=== PATIENT | female | born 1955 | race Caucasian/White ===

== ENCOUNTER 2017-02-26 09:02 | Inpatient (IN) | payer BC ==
[~2017-02-26] VITALS: Ht 154.9 cm; Wt 109.0 kg
[2017-02-26] VITALS (30 sets, daily range): BP systolic 72–112; BP diastolic 35–63
[~2017-02-26 09:02] MED LIST: ALPR1TAB7 PO; BENA20TA2 PO; BISO5TAB4 PO; CALC-1197 PO; CHOL100046 PO; DOCU-28 PO; DOCUMENT DATE & TIME OF BETA-BLOCKER PO ONE; EMPA25TA PO; FERR325T32 PO; HYDR-3972 PO; LACT460C; TEMA30CA5 PO; acetaminophen 325mg tablet PO ONE; bacitracin inj 150,000 UNIT in sodium chloride irrig. sol 3,000 ML IR ONE; ceFAZolin 2gm in dextrose, iso 100 ML IV ONE; famotidine 20mg tablet PO ONE; gabapentin 300mg capsule PO ONE; oxyCODONE SR 10mg (sust. release) tab PO ONE; ringers solution, lacted 1,000 ML IV SCH; tranexamic acid inj. 1,000 MG in normal saline 100ml IV soln 90 ML IV ONE; vancomycin inj 1,500 MG in normal saline 300ml IV soln IV ONE
[2017-02-26] MEDS ORDERED: albuterol 2.5 MG/3 ML nebule NEB ONE (10:10)
[2017-02-26] MEDS ORDERED: albuterol 2.5 MG/3 ML nebule ONE (10:11)
[2017-02-26] MEDS ORDERED: MORPHINE SULFATE/PF 0.5 MG/ML 10ML AMPUL ONE (10:28)
[2017-02-26] MEDS ORDERED: ROPIVAcaine 0.5% (5mg/ml) 30ml vial ONE ×2 (10:28→10:34)
[2017-02-26] MEDS ORDERED: fentaNYL/PF 50MCG/1 ML 2ML syringe ONE (10:31)
[2017-02-26] MEDS ORDERED: MIDAZolam 1mg/ml 10ml vial ONE (10:31)
[2017-02-26] MEDS ORDERED: tetracaine 1% (10mg/ml) pres. free inj. ONE (10:35)
[2017-02-26] MEDS ORDERED: phenylephrine 10mg/ml inj IV ONE (10:59)
[2017-02-26] MEDS ORDERED: propofol inj 20 ML IV ONE ×2 (11:01)
[2017-02-26] MEDS ORDERED: ceFAZolin 1000mg inj ONE ×2 (12:30→12:33)
[2017-02-26] MEDS ORDERED: naloxone 2mg/2ml inj 2 MG in normal saline 500ml IV soln 500 ML IV PRN (12:43)
[2017-02-26] MEDS ORDERED: ringers solution, lacted 1,000 ML IV SCH (12:43)
[2017-02-26] MEDS ORDERED: diphenhydrAMINE 50 mg/ml inj IV PRN (12:45)
[2017-02-26] MEDS ORDERED: ondansetron/PF 4mg/2ml inj IV PRN ×3 (12:45→13:10)
[2017-02-26] MEDS ORDERED: proCHLORperazine 10 MG/2 ml inj IV PRN (12:45)
[2017-02-26] MEDS ORDERED: meperidine/PF 25mg/ml syringe IV PRN ×3 (12:45)
[2017-02-26] MEDS ORDERED: acetaminophen 325mg tablet PO PRN (13:10)
[2017-02-26] MEDS ORDERED: dextrose 50%-water 50ml dispensing syringe IV PRN ×2 (13:10)
[2017-02-26] MEDS ORDERED: MESSAGE TO PHARMACY PO ONE (13:10)
[2017-02-26] MEDS ORDERED: HYDROmorphone 1 mg/ml syringe IV PRN (13:10)
[2017-02-26] MEDS ORDERED: bisacodyl 10mg suppository rectal RC PRN (13:10)
[2017-02-26] MEDS ORDERED: dextrose ORAL solution 15 GM/59 ML bottle PO PRN ×2 (13:10)
[2017-02-26] MEDS ORDERED: insulin Lispro (HumaLOG) vial - multi-dose SQ SCH (13:10)
[2017-02-26] MEDS ORDERED: diphenhydrAMINE 25mg capsule PO PRN ×2 (13:10)
[2017-02-26] MEDS ORDERED: glucagon, human recombinant 1mg kit SUBCUT PRN (13:10)
[2017-02-26] MEDS ORDERED: magnesium hydroxide 30ml (MOM) UD suspension PO PRN (13:10)
[2017-02-26] MEDS: nicotine 21mg patch - 24 hr TD SCH (16:40)
[2017-02-26] MEDS: acetaminophen 325mg tablet PO SCH ×2 (16:42→20:15)
[2017-02-26] MEDS: cefazolin 1gm/NS 100mL 100 ML IV SCH (16:45)
[2017-02-26] MEDS: celeCOXIB 100mg capsule PO SCH (20:00)
[2017-02-26] MEDS ORDERED: ALPRAZolam 0.5mg tablet PO PRN (20:00)
[2017-02-26] MEDS ORDERED: vancomycin/NS 1 GM ADD-VANTAGE 250 ML IV SCH (20:00)
[2017-02-26] MEDS: ascorbic acid 500mg tablet PO SCH (20:13)
[2017-02-26] MEDS: insulin glargine (Lantus) pen - multi-dose SQ SCH (20:15)
[2017-02-26] MEDS: gabapentin 300mg capsule PO SCH (20:15)
[2017-02-26] MEDS: sennosides 8.6mg tablet PO SCH (20:15)
[2017-02-26] MEDS ORDERED: normal saline 250ml IV soln 250 ML IV ONE (20:20)
[2017-02-26] MEDS: potassium cl 20mEq in 1/2 NS 1,000 ML IV SCH (20:41)
[2017-02-26] MEDS: oxyCODONE IR 5mg (immed. release) tablet PO PRN (20:43)
[2017-02-27] MEDS: cefazolin 1gm/NS 100mL 100 ML IV SCH (00:28)
[2017-02-27 02:00] VITALS: BP 92/42
[2017-02-27] MEDS: oxyCODONE IR 5mg (immed. release) tablet PO PRN ×5 (02:05→17:48)
[2017-02-27] MEDS: acetaminophen 325mg tablet PO SCH ×4 (02:05→19:53)
[2017-02-27] MEDS: potassium cl 20mEq in 1/2 NS 1,000 ML IV SCH ×3 (05:52→19:54)
[2017-02-27 06:00] VITALS: BP 100/51
[2017-02-27 06:16] LABS: BASOPHILS % (AUTO) 0.4 % (0-1); EOSINOPHILS # (AUTO) 0.4 X10'3 (0-0.9); EOSINOPHILS % (AUTO) 3.7 % (0-6); HEMATOCRIT 41.4 % (35.0-45.0); HEMOGLOBIN 13.9 g/dl (12.0-16.0); LYMPHOCYTES # (AUTO) 2.1 X10'3 (1.1-4.8); LYMPHOCYTES % (AUTO) 21.6 % (21-51); MEAN CORPUSCULAR HGB CONC 33.5 % (33.0-36.5); MEAN CORPUSCULAR VOLUME 95.4 FL (78-98); MEAN PLATELET VOLUME 9.6 FL (7.4-10.4); MONOCYTES # (AUTO) 0.8 X10'3 (0-0.9); MONOCYTES % (AUTO) 8.2 % (2-12); NEUTROPHILS # (AUTO) 6.5 X10'3 (1.8-7.7); NEUTROPHILS % (AUTO) 66.1 % (42-75); PLATELET COUNT 162 X10'3 (140-440); RED BLOOD COUNT 4.34 X10'6 (4.20-5.60); RED CELL DISTRIBUTION WIDTH 13.1 % (11.5-14.5); WHITE BLOOD COUNT 9.8 X10'3 (4.5-11.0)
[2017-02-27 06:32] LABS: INR 1.4 INR; PROTHROMBIN TIME 14.4 SECONDS (9.0-12.0)
[2017-02-27 06:41] LABS: ANION GAP 7 (8-16); CHLORIDE 112 MMOL/L (99-107); POTASSIUM 4.6 MMOL/L (3.5-5.1); SODIUM 143 MMOL/L (135-145)
[2017-02-27] MEDS: gabapentin 300mg capsule PO SCH ×3 (08:00→19:53)
[2017-02-27] MEDS: EMPAGLIFLOZIN PO SCH (08:00)
[2017-02-27] MEDS: celeCOXIB 100mg capsule PO SCH ×2 (08:00→19:54)
[2017-02-27] MEDS: lisinopril 20mg tablet PO SCH (08:00)
[2017-02-27] MEDS: ascorbic acid 500mg tablet PO SCH ×2 (08:44→19:53)
[2017-02-27] MEDS: multivitamins, therapeutics tablet PO SCH (08:45)
[2017-02-27] MEDS: docusate sod 100mg capsule PO SCH (08:49)
[2017-02-27] MEDS: atenolol 50mg tablet PO SCH (08:50)
[2017-02-27] MEDS: nicotine 21mg patch - 24 hr TD SCH (08:51)
[2017-02-27 10:00] VITALS: BP 112/63
[2017-02-27] MEDS ORDERED: warfarin 5mg tablet PO ONE (10:00)
[2017-02-27 14:00] VITALS: BP 117/51
[2017-02-27 18:19] VITALS: BP 145/73
[2017-02-27] MEDS ORDERED: HYDROmorphone inj. 0.5 MG/0.5 ML DISP.SYRIN ONE (19:41)
[2017-02-27] MEDS: sennosides 8.6mg tablet PO SCH (19:53)
[2017-02-27] MEDS: insulin glargine (Lantus) pen - multi-dose SQ SCH (19:54)
[2017-02-27 22:00] VITALS: BP 147/70
[2017-02-28] MEDS: oxyCODONE IR 5mg (immed. release) tablet PO PRN ×3 (01:15→10:46)
[2017-02-28] MEDS: acetaminophen 325mg tablet PO SCH ×2 (01:15→08:01)
[2017-02-28] MEDS: potassium cl 20mEq in 1/2 NS 1,000 ML IV SCH (04:30)
[2017-02-28 06:44] LABS: BASOPHILS % (AUTO) 0.3 % (0-1); EOSINOPHILS # (AUTO) 0.1 X10'3 (0-0.9); EOSINOPHILS % (AUTO) 1.2 % (0-6); HEMATOCRIT 42.9 % (35.0-45.0); HEMOGLOBIN 14.8 g/dl (12.0-16.0); LYMPHOCYTES # (AUTO) 2.1 X10'3 (1.1-4.8); LYMPHOCYTES % (AUTO) 16.6 % (21-51); MEAN CORPUSCULAR HEMOGLOBIN 32.2 PG (27.0-31.0); MEAN CORPUSCULAR HGB CONC 34.4 % (33.0-36.5); MEAN CORPUSCULAR VOLUME 93.6 FL (78-98); MONOCYTES # (AUTO) 0.9 X10'3 (0-0.9); MONOCYTES % (AUTO) 7.6 % (2-12); NEUTROPHILS # (AUTO) 9.2 X10'3 (1.8-7.7); NEUTROPHILS % (AUTO) 74.3 % (42-75); PLATELET COUNT 161 X10'3 (140-440); RED BLOOD COUNT 4.58 X10'6 (4.20-5.60); RED CELL DISTRIBUTION WIDTH 12.7 % (11.5-14.5); WHITE BLOOD COUNT 12.4 X10'3 (4.5-11.0)
[2017-02-28 06:46] VITALS: BP 123/63
[2017-02-28 06:53] LABS: INR 1.9 INR; PROTHROMBIN TIME 18.9 SECONDS (9.0-12.0)
[2017-02-28] MEDS: docusate sod 100mg capsule PO SCH (08:00)
[2017-02-28] MEDS: EMPAGLIFLOZIN PO SCH (08:00)
[2017-02-28] MEDS: celeCOXIB 100mg capsule PO SCH (08:00)
[2017-02-28] MEDS: atenolol 50mg tablet PO SCH (08:00)
[2017-02-28] MEDS: multivitamins, therapeutics tablet PO SCH (08:00)
[2017-02-28] MEDS: lisinopril 20mg tablet PO SCH (08:01)
[2017-02-28] MEDS: ascorbic acid 500mg tablet PO SCH (08:01)
[2017-02-28] MEDS: gabapentin 300mg capsule PO SCH (08:02)
[2017-02-28] MEDS: nicotine 21mg patch - 24 hr TD SCH (08:02)
[2017-02-28] MEDS ORDERED: warfarin 1mg tablet PO ONE (10:00)
[2017-02-28] MEDS ORDERED: ASPI-1264 PO (10:45)
[2017-02-28] MEDS ORDERED: acetaminophen 325mg tablet PO PRN (13:10)
== END 2017-02-28 11:30 | disposition home or self-care (01) | DRG 470 ==
LOC: PAS IN 09:02 → EDSTATUS 11:00 → ORTHO 4S 16:19
PROVIDERS: ADMIT Specialist; ATTEND Specialist
PROC: 0LNQ0ZZ Release Right Knee Tendon, Open Approach (ICD-10-PCS; 2017-02-26)
PROC: 0SRC0J9 Replacement of Right Knee Joint with Synthetic Substitute, Cemented, Open Approach (ICD-10-PCS; principal; 2017-02-26 10:23)
DX: M17.11 Unilateral primary osteoarthritis, right knee (principal); D62 Acute posthemorrhagic anemia; Z68.42 Body mass index [BMI] 45.0-49.9, adult; E66.01 Morbid (severe) obesity due to excess calories; E11.9 Type 2 diabetes mellitus without complications; M21.161 Varus deformity, not elsewhere classified, right knee; I10 Essential (primary) hypertension; Z96.641 Presence of right artificial hip joint; F41.9 Anxiety disorder, unspecified; Z79.899 Other long term (current) drug therapy; Z79.01 Long term (current) use of anticoagulants; Z79.4 Long term (current) use of insulin; Z79.84 Long term (current) use of oral hypoglycemic drugs
CPT/HCPCS: 36415; 73560; 80051; 82948; 85025; 85610; 94640; 97116; 97161; 97530; A6449; A6455; A7000; C1713; C1758; C1776; J0690; J1170; J1815; J2250; J2274; J2370; J2405; J2704; J2795; J3010; J3370; J7030; J7120; Q0163